=== PATIENT | female | born 1980 | race Caucasian/White ===

== ENCOUNTER 2019-06-05 21:24 | Emergency (ER) | payer SELFPAY ==
[2019-06-05 22:07] VITALS: TEMP 98.2; BMI 23.5
--- NOTE | 2019-06-05 22:57 | PDOC ---
Attending Attestation - Resident Resident Name: Teresa Farah - ED Attending Attestation I have performed the following: I have examined & evaluated the patient, The case was reviewed & discussed with the resident, I agree w/resident's findings & plan - HPI HPI: 06/05/19 23:38 see resident hpi - Physicial Exam PE: 06/05/19 23:38 agree with resident exam - Medical Decision Making 06/05/19 23:39 38-year-old female with 10 out of 10 right ear pain, according to family she did place cotton in the ear On exam there is a large amount of oates debris in the canal largely obscuring the TM Aside from pain, patient is afebrile Plan for fingerstick check, DC on Augmentin with close outpatient ENT follow-up Patient will be advised of this if she is unable to get an appointment she should return to the emergency department within 48 hours for recheck, sooner if symptoms worsen
--- NOTE | 2019-06-05 22:59 | PDOC ---
History of Present Illness - General Chief Complaint: Ear Problem Stated Complaint: EAR PAIN Time Seen by Provider: 06/05/19 22:54 History Source: Patient, Family (Daughter) Exam Limitations: No Limitations Past History - Travel Traveled outside of the country in the last 30 days: No Close contact w/someone who was outside of country & ill: No - Past Medical History Allergies/Adverse Reactions: Allergies Allergy/AdvReac Type Severity Reaction Status Date / Time No Known Allergies Allergy Verified 06/05/19 22:08 Home Medications: Ambulatory Orders Amox-Tr/K Cl [Augmentin - 875Mg Tablet] 1 tab PO BID #14 tablet 06/05/19 COPD: No - Psycho Social/Smoking Cessation Hx Smoking History: Never smoked Have you smoked in the past 12 months: No Information on smoking cessation initiated: No Hx Alcohol Use: No Drug/Substance Use Hx: No *Physical Exam - Vital Signs Last Vital Signs Temp Pulse Resp BP Pulse Ox 98.2 F 95 H 18 117/58 L 100 06/05/19 21:25 06/05/19 21:25 06/05/19 21:25 06/05/19 21:25 06/05/19 21:25 Discharge - Discharge Information Problems reviewed: Yes Clinical Impression/Diagnosis: Otitis media Qualifiers: Otitis media type: suppurative Chronicity: acute Laterality: right Recurrence: non-recurrent Spontaneous tympanic membrane rupture: without spontaneous rupture Qualified Code(s): H66.001 - Acute suppurative otitis media without spontaneous rupture of ear drum, right ear Condition: Stable Disposition: HOME - Admission No - Additional Discharge Information Prescriptions: Amox-Tr/K Cl [Augmentin - 875Mg Tablet] 1 tab PO BID #14 tablet - Follow up/Referral Referrals: Ken Aguilera MD [Staff Physician] - [facility] – [place] [facility] [place] [Provider Group] - Patient Discharge Instructions Patient Printed Discharge Instructions: DI for Otitis Media (Middle Ear Infection)-Child, DI for Mastoiditis-Adult Additional Instructions: You were seen in the ER today for ear pain, which we are treating with antibiotics. Please follow-up with your primary care doctor AND CALL ENT TOMORROW to discuss your visit and make sure your symptoms have improved. Please return to the ER if you have any worsening pain, development of fevers or chills, loss of consciousness, inability to tolerate food or fluids, or any other concerns. I have sent medications to your pharmacy. Please take these medications as prescribed. You can take tylenol or motrin every 4-6 hours as needed for pain. - Post Discharge Activity
[2019-06-05] MEDS ORDERED: ACETAMINOPHEN 325 MG TABLET (FP) PO ONE (23:11)
[2019-06-05] MEDS ORDERED: AMOX TR/POT CLAV 875MG/125MG TABLETS (FP) PO ONE (23:19)
[2019-06-05] MEDS ORDERED: AMOX TR/POT CLAV 875MG/125MG TABLETS (FP) ONE (23:35)
[2019-06-05] MEDS ORDERED: ACETAMINOPHEN 325 MG TABLET (FP) ONE (23:35)
[2019-06-05] MEDS ORDERED: oxyCODONE HCL 5 MG TABLET PO ONE (23:42)
[2019-06-05] MEDS ORDERED: oxyCODONE HCL 5 MG TABLET ONE (23:47)
[2019-06-06 00:26] VITALS: BP 121/81; PULSE 72
== END 2019-06-06 00:26 | disposition home or self-care (01) ==
LOC: JER 21:24
DX: H66.001 Acute suppurative otitis media without spontaneous rupture of ear drum, right ear (principal)
CPT/HCPCS: 82962; 99281-25